=== PATIENT | female | born 1930 | race African-American/Black ===

== ENCOUNTER 2017-09-03 16:03 | Inpatient (IN) | payer OTHER ==
[~2017-09-03] VITALS: Ht 157.5 cm; Wt 56.0 kg
[2017-09-03] MEDS ORDERED: ASPI-1159 PO (16:11)
[2017-09-03] MEDS ORDERED: ONDANSETRON HCL 4MG/2ML VIAL IV STA (16:51)
[2017-09-03] MEDS ORDERED: DILTIAZEM HCL 30MG TABLET PO ONE (17:00)
[2017-09-03] MEDS ORDERED: CALCIUM GLUCONATE 100MG/ML 10ML VIAL IV ONE (17:00)
[2017-09-03] MEDS ORDERED: DILTIAZEM HCL 5MG/ML 5ML VIAL IV ONE (17:00)
[2017-09-03 18:16] LABS: BASOPHILS % 0.6 % (0.0-2.0); EOSINOPHILS % 0.2 % (0.0-5.0); HEMATOCRIT. 30.6 % (36.0-48.0); LYMPHOCYTES % 20.1 % (20.0-50.0); MEAN CORPUSCULAR VOLUME 85.7 fL (81.0-99.0); MEAN PLATELET VOLUME 7.9 fl (7.4-10.4); MONOCYTES % 5.8 % (2.0-8.0); NEUTROPHILS % 73.3 % (40.0-76.0); PLATELET 463 x1000/uL (130-400); RED BLOOD CELL COUNT 3.57 mill/uL (4.2-5.4); RED CELL DISTRIBUTION WIDTH 22.1 % (11.6-14.6)
[2017-09-03 18:20] LABS: CHLORIDE 114 mEq/L (98-107)
[2017-09-03 18:21] LABS: CARBON DIOXIDE 23 mEq/L (21-32)
[2017-09-03 18:25] LABS: D-DIMER 2.47 mg/L FEU (<0.50); INR 1.2; PARTIAL THROMBOPLASTIN TIME 28.4 sec (23.4-31.0); PROTHROMBIN TIME 12.1 sec (9.4-11.6)
[2017-09-03 18:28] LABS: CREATINE KINASE 42 IU/L (26-192); TROPONIN I 0.05 ng/mL (0.00-0.04)
[2017-09-03 18:59] LABS: PLATELET ESTIMATE SLIGHTLY INCREASED
[2017-09-03] MEDS ORDERED: MORPHINE SULFATE 10 MG/ML CPJ IM ONE (19:45)
[2017-09-03] MEDS ORDERED: LORAZEPAM 2MG/ML CPJ IM ONE (19:45)
[2017-09-03] MEDS ORDERED: PIPERACILLIN/TAZ 3.375G PREMIX 50 ML IV ONE (20:15)
[2017-09-03] MEDS ORDERED: ACETAMINOPHEN 325MG TABLET PO PRN (20:30)
[2017-09-03] MEDS ORDERED: CLONIDINE 0.1MG TABLET PO PRN (20:30)
[2017-09-03] MEDS ORDERED: IPRATROPIUM/ALBUTEROL 0.5-3(2.5)MG/3ML NEB INH PRN (20:30)
[2017-09-03] MEDS ORDERED: DIPHENHYDRAMINE 50MG/ML VIAL IV PRN (20:30)
[2017-09-03] MEDS ORDERED: DOCUSATE SODIUM 100MG CAPSULE PO PRN (20:30)
[2017-09-03] MEDS ORDERED: LORAZEPAM 2MG/ML CPJ IV PRN (20:30)
[2017-09-03] MEDS ORDERED: NA PHOS,M-B/NA PHOS,DI-BA ENEMA 118ML PR PRN (20:30)
[2017-09-03] MEDS ORDERED: MAGNESIUM/ALUMINUM HYDROXIDE/SIMETHICONE 30ML UDC PO PRN (20:30)
[2017-09-03] MEDS ORDERED: GUAIFENESIN 200MG/10ML SUGAR FREE UDC PO PRN (20:30)
[2017-09-03 23:05] LABS: CARBON DIOXIDE 24 mEq/L (21-32); CHLORIDE 112 mEq/L (98-107)
[2017-09-03] MEDS ORDERED: ASPIRIN 81MG EC TABLET PO NR (23:30)
[2017-09-04] VITALS (24 sets, daily range): BP systolic 99–160; BP diastolic 54–126
[2017-09-04] MEDS ORDERED: LEVOFLOXACIN 500MG PREMIX 100 ML IV SCH (05:00)
[2017-09-04 05:56] LABS: BASOPHILS % 0.5 % (0.0-2.0); EOSINOPHILS % 0.2 % (0.0-5.0); HEMATOCRIT. 26.7 % (36.0-48.0); HEMOGLOBIN. 8.8 g/dL (12.0-16.0); LYMPHOCYTES % 23.7 % (20.0-50.0); MEAN CORPUSCULAR HEMOGLOBIN 27.7 pg (28.0-32.0); MEAN CORPUSCULAR VOLUME 84.6 fL (81.0-99.0); MEAN PLATELET VOLUME 7.5 fl (7.4-10.4); MONOCYTES % 6.5 % (2.0-8.0); NEUTROPHILS % 69.1 % (40.0-76.0); PLATELET 437 x1000/uL (130-400); RED BLOOD CELL COUNT 3.16 mill/uL (4.2-5.4)
[2017-09-04] MEDS: HYDROMORPHONE HCL/PF 2MG/ML CPJ IV PRN ×2 (06:22→16:04)
[2017-09-04 06:40] LABS: CARBON DIOXIDE 25 mEq/L (21-32); CHLORIDE 113 mEq/L (98-107); HDL CHOLESTEROL 24 mg/dL (40-59); LDL CHOLESTEROL 57 mg/dL (5-100); T4 FREE 1.28 ng/dL (0.76-1.46)
[2017-09-04] MEDS ORDERED: FUROSEMIDE 40MG/4ML VIAL IV SCH (07:15)
[2017-09-04] MEDS: HYDROCODONE/ACETAMINOPHEN 5/325MG TABLET PO PRN ×2 (10:35→18:48)
[2017-09-04] MEDS: ASPIRIN 81MG EC TABLET PO SCH (10:35)
[2017-09-04] MEDS: ENOXAPARIN 40MG/0.4ML SYR SUBCUT SCH (10:35)
[2017-09-04 11:30] LABS: T4 FREE 1.22 ng/dL (0.76-1.46)
[2017-09-04] MEDS ORDERED: IOHEXOL-350 100 ML BOTTLE ONE (17:22)
[2017-09-04 18:25] LABS: CREATINE KINASE MB FRACTION 7.2 ng/mL (0.5-3.6)
[2017-09-05] VITALS (13 sets, daily range): BP systolic 130–164; BP diastolic 61–100
[2017-09-05] MEDS: HYDROMORPHONE HCL/PF 2MG/ML CPJ IV PRN ×3 (00:02→21:41)
[2017-09-05 00:13] LABS: CREATINE KINASE MB FRACTION 4.9 ng/mL (0.5-3.6)
[2017-09-05 00:15] LABS: TROPONIN I 0.92 ng/mL (0.00-0.04)
[2017-09-05] MEDS ORDERED: LEVOFLOXACIN 250MG PREMIX 50 ML IV SCH (05:00)
[2017-09-05 08:44] LABS: HEMATOCRIT 32.7 % (36.0-48.0); HEMOGLOBIN 10.9 g/dL (12.0-16.0); MEAN CORPUSCULAR HEMOGLOBIN 28.2 pg (28.0-32.0); MEAN CORPUSCULAR VOLUME 84.7 fL (81.0-99.0); PLATELET 420 x1000/uL (130-400); RED BLOOD CELL COUNT 3.86 mill/uL (4.2-5.4); RED CELL DISTRIBUTION WIDTH 19.5 % (11.6-14.6)
[2017-09-05] MEDS: ASPIRIN 81MG EC TABLET PO SCH (08:59)
[2017-09-05] MEDS: ENOXAPARIN 40MG/0.4ML SYR SUBCUT SCH (08:59)
[2017-09-05 09:15] LABS: CREATINE KINASE MB FRACTION 3.9 ng/mL (0.5-3.6)
[2017-09-05 10:15] LABS: TROPONIN I 0.86 ng/mL (0.00-0.04)
[2017-09-05] MEDS ORDERED: LOSARTAN POTASSIUM 50 MG TABLET PO SCH (10:30)
[2017-09-05] MEDS: METOPROLOL TARTRATE 50MG TABLET PO SCH ×2 (11:13→21:02)
== END 2017-09-05 21:57 | disposition short-term general hospital (02) | DRG 871 ==
LOC: ER 16:26 → 5EST 20:32 → EDBEDREQTM 20:33 → EDBEDREQ 20:33 → ENRESERV 20:46
PROVIDERS: ADMIT Internal Medicine; ATTEND Internal Medicine
PROC: 06HM33Z Insertion of Infusion Device into Right Femoral Vein, Percutaneous Approach (ICD-10-PCS; 2017-09-03)
PROC: 30233N1 Transfusion of Nonautologous Red Blood Cells into Peripheral Vein, Percutaneous Approach (ICD-10-PCS; principal; 2017-09-04)
DX: A41.9 Sepsis, unspecified organism (principal); J69.0 Pneumonitis due to inhalation of food and vomit; J96.90 Respiratory failure, unspecified, unspecified whether with hypoxia or hypercapnia; I48.92 Unspecified atrial flutter; I27.20 Pulmonary hypertension, unspecified; I50.9 Heart failure, unspecified; I11.0 Hypertensive heart disease with heart failure; I48.0 Paroxysmal atrial fibrillation; D64.9 Anemia, unspecified; F03.90 Unspecified dementia, unspecified severity, without behavioral disturbance, psychotic disturbance, mood disturbance, and anxiety; M25.552 Pain in left hip; Z87.11 Personal history of peptic ulcer disease
CPT/HCPCS: 36415; 36556; 71010; 71275; 72170; 78580; 80048; 80053; 80061; 82550; 82553; 83036; 83605; 83690; 83735; 83880; 84439; 84443; 84484; 85025; 85027; 85379; 85610; 85730; 86850; 86900; 86920; 87040; 93005; 93306; 93970; 96372; 96374; 97162; 99291; J0610; J1170; J1200; J1650; J1940; J1956; J2060; J2270; J2405; J2543; J3490; J7030; P9016; Q9967; A4315

== ENCOUNTER 2017-11-13 09:36 | Emergency (ER) | payer OTHER ==
[~2017-11-13] VITALS: Ht 165.1 cm; Wt 48.0 kg
[~2017-11-13 09:36] MED LIST: METO25TA3 PO; MIRT15TA6 PO; MONT10TA24 PO; PROT40 PO; SUCR1TAB30 PO; TRAZ-129 PO
[2017-11-13] MEDS ORDERED: ONDANSETRON HCL 4MG/2ML VIAL IV STA (10:02)
[2017-11-13] MEDS ORDERED: DICYCLOMINE 10 MG/5 ML ORAL SYR PO STA (10:02)
[2017-11-13] MEDS ORDERED: MAGNESIUM/ALUMINUM HYDROXIDE/SIMETHICONE 30ML UDC PO STA (10:02)
[2017-11-13] MEDS ORDERED: VISCOUS LIDOCAINE 2% 15 ML UDC PO STA (10:02)
[2017-11-13] MEDS ORDERED: KETOROLAC 30MG/ML VIAL IV STA (10:02)
[2017-11-13 10:20] LABS: BASOPHILS % 0.3 % (0.0-2.0); EOSINOPHILS % 0.1 % (0.0-5.0); HEMATOCRIT. 31.1 % (36.0-48.0); HEMOGLOBIN. 10.2 g/dL (12.0-16.0); LYMPHOCYTES % 32.5 % (20.0-50.0); MEAN CORPUSCULAR HEMOGLOBIN 29.4 pg (28.0-32.0); MEAN CORPUSCULAR VOLUME 89.6 fL (81.0-99.0); MEAN PLATELET VOLUME 7.6 fl (7.4-10.4); MONOCYTES % 4.2 % (2.0-8.0); NEUTROPHILS % 62.9 % (40.0-76.0); PLATELET 550 x1000/uL (130-400); RED BLOOD CELL COUNT 3.47 mill/uL (4.2-5.4)
[2017-11-13 10:26] LABS: INR 1.3; PROTHROMBIN TIME 13.5 sec (9.4-11.6)
[2017-11-13 10:33] LABS: CHLORIDE 111 mEq/L (98-107)
[2017-11-13] MEDS ORDERED: SODIUM CHLORIDE 0.9% 1,000 ML IV ONE (11:13)
[2017-11-13] MEDS ORDERED: CALCIUM GLUCONATE 100MG/ML 10ML VIAL IV ONE (11:15)
[2017-11-13] MEDS ORDERED: LIDOCAINE HCL 1% 20ML VIAL (Pyxis) INJ ONE (12:04)
[2017-11-13] MEDS ORDERED: SODIUM BICARBONATE 4% (2.4MEQ) 5ML VIAL IV ONE (12:04)
[2017-11-13] MEDS ORDERED: VANCOMYCIN 1 G PREMIX 200 ML IV ONE (12:45)
[2017-11-13] MEDS ORDERED: PIPERACILLIN/TAZ 3.375G PREMIX 50 ML IV ONE (12:45)
[2017-11-13 14:52] LABS: CLARITY URINE CLOUDY (CLEAR); COLOR URINE YELLOW (YELLOW); KETONES URINE NEGATIVE (NEGATIVE); LEUKOCYTE ESTERASE URINE 1+ (NEGATIVE); NITRITE URINE NEGATIVE (NEGATIVE); OCCULT BLOOD URINE TRACE (NEGATIVE); PROTEIN URINE TRACE (NEGATIVE); SPECIFIC GRAVITY URINE 1.023 (1.005-1.030); UROBILINOGEN URINE 0.2 E.U./dL (0.2-1.0)
[2017-11-13] MEDS ORDERED: MAGNESIUM/ALUMINUM HYDROXIDE/SIMETHICONE 30ML UDC PO PRN (15:00)
[2017-11-13] MEDS ORDERED: PIPERACILLIN/TAZ 3.375G PREMIX 50 ML IV SCH (15:00)
[2017-11-13] MEDS ORDERED: VANCOMYCIN 1 G PREMIX 200 ML IV SCH (15:00)
[2017-11-13] MEDS ORDERED: CLONIDINE 0.1MG TABLET PO PRN (15:00)
[2017-11-13] MEDS ORDERED: GUAIFENESIN 200MG/10ML SUGAR FREE UDC PO PRN (15:00)
[2017-11-13] MEDS ORDERED: NITROGLYCERIN 0.4MG TABLET SL SL PRN (15:00)
[2017-11-13] MEDS ORDERED: DOCUSATE SODIUM 100MG CAPSULE PO PRN (15:00)
[2017-11-13] MEDS ORDERED: ACETAMINOPHEN 325MG TABLET PO PRN (15:00)
[2017-11-13] MEDS ORDERED: LORAZEPAM 0.5MG TABLET PO PRN (15:00)
[2017-11-13] MEDS ORDERED: ONDANSETRON HCL 4MG/2ML VIAL IV PRN (15:00)
[2017-11-13] MEDS ORDERED: DIPHENHYDRAMINE 50MG/ML VIAL IV PRN (15:00)
[2017-11-13] MEDS ORDERED: IPRATROPIUM/ALBUTEROL 0.5-3(2.5)MG/3ML NEB INH PRN (15:00)
[2017-11-13 16:09] VITALS: BP 115/60
[2017-11-13] MEDS ORDERED: MORPHINE SULFATE 4 MG/ML CPJ (NOT FOR IM USE) IV PRN (16:15)
[2017-11-13 16:25] LABS: FOLIC ACID (FOLATE) SERUM 4.5 ng/mL (>5.38)
[2017-11-13] MEDS ORDERED: TRAMADOL 50MG TABLET PO ONE (16:30)
[2017-11-13] MEDS ORDERED: TRAMADOL 50MG TABLET PO PRN (16:30)
[2017-11-13] MEDS ORDERED: NA PHOS,M-B/NA PHOS,DI-BA ENEMA 118ML PR PRN (20:00)
[2017-11-13] MEDS ORDERED: ZOLPIDEM TARTRATE 5MG TABLET PO PRN (20:30)
[2017-11-14] MEDS ORDERED: PANTOPRAZOLE SODIUM 40 MG/VIAL IV SCH (09:00)
== END 2017-11-13 18:55 | disposition left against medical advice (07) ==
LOC: ER 09:42 → EDBEDREQSVC 13:54 → EDBEDREQ 13:54 → SUPCPDRO 14:56 → ER 18:55 → CANBEDREQ 19:31
DX: A41.9 Sepsis, unspecified organism (principal); R18.8 Other ascites; F03.90 Unspecified dementia, unspecified severity, without behavioral disturbance, psychotic disturbance, mood disturbance, and anxiety; J90 Pleural effusion, not elsewhere classified; I25.2 Old myocardial infarction; I10 Essential (primary) hypertension; I48.91 Unspecified atrial fibrillation; E83.51 Hypocalcemia; J45.909 Unspecified asthma, uncomplicated; M16.12 Unilateral primary osteoarthritis, left hip; I47.1 Supraventricular tachycardia; Z87.19 Personal history of other diseases of the digestive system; Z79.01 Long term (current) use of anticoagulants; Z88.6 Allergy status to analgesic agent
CPT/HCPCS: 36415; 71045; 74176; 80053; 80061; 80162; 81001; 82607; 82746; 83036; 83540; 83550; 83605; 83615; 83690; 85025; 85610; 87040; 87077; 87086; 87186; 93005; 96361; 96365; 96368; 96375; 99291; J0610; J1885; J2270; J2405; J2543; J3370; J3490; J7040; J7030